=== PATIENT | male | born 1950 | race Caucasian/White ===

== ENCOUNTER 2016-10-30 21:09 | Emergency (ER) | payer OTHER, MEDICARE ==
[~2016-10-30 21:09] MED LIST: Iopamidol 370 76% 100 ML VIAL ONE
[2016-10-30] MEDS ORDERED: Adacel (T-DAP) 0.5 ML VIAL ONE (21:38)
[2016-10-30 21:42] LABS: #Basophils 0.1 thou/uL (0.0-0.2); #Eosinphils 0.2 thou/uL (0.0-0.7); #Lymphocytes 3.5 thou/uL (1.20-3.40); #Neutrophils 5.8 thou/uL (1.40-6.50); %Basophils 0.9 % (0.0-1.0); %Eosinophils 2.2 % (0.0-10.0); %Lymphocytes 33.1 % (21.0-51.0); %Monocytes 9.1 % (0.0-10.0); Hematocrit 47.6 % (42.0-52.0); Mean Platelet Volume 10.1 fL (7.4-10.4); Red Blood Cell (RBC) Count 4.84 mill/uL (4.70-6.10); White Blood Cell (WBC) Count 10.5 thou/uL (4.8-10.8)
[2016-10-30 21:51] LABS: ALT (SGPT) 95 U/L (0-55); AST (SGOT) 102 U/L (5-34); Alkaline Phosphatase 66 U/L (40-150); Anion Gap 18 mmol/L (10-20); BUN (Urea Nitrogen) 11 mg/dL (8.4-25.7); Bilirubin, Total 0.6 mg/dL (0.2-1.2); Calc. Creatinine Clearance 0 mL/min (70-130); Calcium 9.2 mg/dL (7.8-10.44); Carbon Dioxide 22 mmol/L (23-31); Chloride 98 mmol/L (98-107); Estimated GFR-MDRD 60; Protein, Total 6.8 g/dL (5.8-8.1)
[2016-10-30 21:52] LABS: Troponin I 0.021 ng/mL (< 0.028)
[2016-10-30] MEDS ORDERED: Sodium Chloride 0.9% 1,000 ML ONE (21:59)
--- NOTE | 2016-10-30 22:20 | CT ---
HEAD CT WITHOUT CONTRAST 10/30/2016 HISTORY: Trauma. COMPARISON: None. TECHNIQUE: Serial axial CT imaging at 5 mm intervals, from the vertex through the skull base, witho ut contrast. FINDINGS: There is polypoid mucosal thickening of the frontal sinus and anterior ethmoid air cells on the right. There is no displaced calvarial fracture. There is atherosclerotic calcification of the cavernous carotid arteries. No intracranial hemorrhage, midline shift, or mass effect. Mild diffuse cerebral volume loss. IMPRESSION No intracranial hemorrhage or displaced calvarial fracture. POS: [facility]
--- NOTE | 2016-10-30 22:25 | CT ---
CERVICAL SPINE CT WITHOUT CONTRAST 10/30/2016 HISTORY: Fall. Pain. COMPARISON: None. TECHNIQUE: Serial axial CT imaging at 2.5 mm intervals, from the skull base through the lung apices , without contrast. Coronal and sagittal reformatted imaging obtained. FINDINGS: Incompletely imaged linear density noted in the right upper lobe, which may signify scar , volume loss, or infiltrate. The imaged paranasal sinuses and mastoid air cells appear unremarkable. The C1 ring is intact. The re is moderate-severe degenerative change at the atlantoaxial interspace. The craniocervical juncti on and the cervicothoracic junction are unremarkable. The occipital condyles, the dens, and the C1- 2 articulation demonstrate no acute findings. There is bilateral upper cervical spine facet hypertrophy, right greater than left, most prominent a t C2-C3, C3-C4, and C4-C5. No prevertebral soft tissue swelling. No acute fracture. IMPRESSION 1. Incidental findings as above. 2. No acute osseous abnormality seen. POS: [facility]
--- NOTE | 2016-10-30 22:32 | RAD ---
SEMI-UPRIGHT PORTABLE FRONTAL CHEST RADIOGRAPH 10/30/2016 HISTORY: Syncope. Fall. COMPARISON: 03/18/2011 FINDINGS: There is hazy reticulonodular density noted in the right lung base, at the lateral aspec t of the mid right lung zone, new when compared to the 2010 exam. A transvenous pacing device is in place. No pneumothorax or large volume pleural effusion. IMPRESSION Nonspecific hazy, reticulonodular density noted in the right lung, as above. Findings may be relate d to infectious pneumonitis. Follow-up PA and lateral imaging of the chest, following treatment, ad vised, to document resolution. If findings do not resolve in a proper time frame, a CT examination of the chest would then be recommended. CODE T POS: [facility]
--- NOTE | 2016-10-30 23:08 | RAD ---
TWO VIEWS OF THE RIGHT KNEE 10/30/2016 COMPARISON: None. HISTORY: Trauma, pain. FINDINGS: There is moderate lateral compartment narrowing. There is enthesophyte formation at the insertion o f the quadriceps tendon. No significant knee joint effusion. No displaced fracture or evidence of dislocation seen. IMPRESSION: No displaced fracture or dislocation noted. POS: [facility]
[2016-10-30] MEDS ORDERED: Fentanyl 100 MCG/2 ML VIAL ONE (23:17)
--- NOTE | 2016-10-30 23:17 | CT ---
CT ANGIOGRAM CHEST 10/30/2016 COMPARISON: None. HISTORY: Fall, pain. TECHNIQUE: Serial axial CT imaging at 2.5-mm intervals from the thoracic inlet through the upper abdomen with I V contrast using a CT angiogram protocol. Coronal and sagittal 3D reformatted imaging obtained. FINDINGS: The imaged upper abdomen is grossly unremarkable. A multi-lead transvenous pacing device is present . No hilar, mediastinal, or axillary lymphadenopathy noted. Extensive calcified pleural plaque formation is noted, right greater than left. Incidental note is made of an azygous lobe and fissure. No significant pleural, pericardial, or mediastinal fluid is seen. No evidence for pulmonary arterial embolism seen. There is mild hazy posterior ground glass opacity involving the inferior aspect of the right lower l obe, which could be related to inflammatory/infectious pneumonitis. No focal consolidation is seen. There is significant upper lobe emphysematous change. There is no pneumothorax seen on either side. There is a minimally displaced posterolateral right-sided 7th, 8th, and 9th rib fractures. There are a few nodular densities in the right upper lobe, best seen on axial image 19 measuring up to 5 mm. IMPRESSION: 1. Mildly displaced right-sided posterolateral 7th, 8th, and 9th rib fractures. Associated adjacent right lower ground glass opacity suggests volume loss or contusion. 2. No evidence for pulmonary embolism. 3. Emphysematous change. 4. Calcified pleural plaque formation suggests prior asbestos exposure. 5. Subcentimeter nodular densities in right upper lobe for which follow-up CT examination in 3-6 mon ths advised. POS: [facility]
[2016-10-31 00:06] LABS: Bilirubin Negative (Negative); Blood, Urine Negative (Negative); Glucose, Urine (Dipstick) Negative (Negative); Ketone, Urine Negative (Negative); Nitrite Negative (Negative); Protein, Urine (Dipstick) 30 mg/dL (Neg-Trace)
[2016-10-31 00:09] LABS: RBC/HPF None Seen HPF (0-3); WBC/HPF None Seen HPF (0-3)
[2016-10-31 00:10] LABS: Bacteria/HPF None Seen HPF (None Seen); Squamous Epithelial None Seen HPF (0-3)
[2016-10-31 00:15] LABS: Methadone Not Detected (NotDetected); Methamphetamine Not Detected (NotDetected)
--- NOTE | 2016-10-31 00:35 | ERRECORD ---
[facility] EMERGENCY RECORD ADMIN (21:11 EPIE) MERGE: Ambulance Sat Oct 30, 2016 20:57. HPI SYNCOPE (21:37 AGRE) CHIEF COMPLAINT: Patient presents for evaluation of syncope. HISTORIAN: History provided by patient's partner, Additional history obtained from EMS, PATIENT WALKED OUTDOORS AT A DEMOCRAT AND THEN STARTED LOOKING FUNNY AND PASSED OUT HITTING HIS HEAD ON THE GROUND. HAD LOC FOR ABOUT 5 MINUTES. EMS REPORTS HE WAS CONFUSED WITH LOW BLOOD PRESSURE UPON THEIR ARRIVAL. PATIENT DOES NOT RECALL WHAT HAPPENED. WAS FEELING WELL PRIOR. DENIES CHEST PAIN, SOB, ABDOMINAL PAIN AT THIS TIME. ONLY SYMPTOMS NOW IS HEADACHE. HX OF RECENT FX OF RIGHT LEG AND WAS ON CRUTCHES FOR THAT UNTIL 3 WEEKS AGO. HIS ASSOCIATE REPORTS THAT HE PASSED OUT ONCE A FEW YEARS AGO FROM DEHYDRATION. LOCATION: No localizing symptoms. QUALITY: Symptom quality described as blackout. SEVERITY: Maximum severity of symptoms severe, Currently symptoms are severe. TIME COURSE: Sudden onset of symptoms, Symptoms are improving. ASSOCIATED WITH: No associated abdominal pain, No associated back pain, No associated change in speech, No associated chest pain, No associated diarrhea, No associated diaphoresis, No associated focal deficit, No associated GI Bleed, No associated pleuritic chest pain, No associated recent surgery, Associated with alevism of normal mental status, delayed, No associated shortness of breath, No associated seizures, No associated tachycardia, No associated vomiting, No associated weakness, Denies any other complaints. EXACERBATED BY: Patient's condition exacerbated by nothing. RELIEVED BY: Patient's condition relieved by nothing. WELLS CRITERIA FOR PE: No clinical signs and symptoms of a DVT (0), Patient does not have, or is likely to not have, a primary diagnosis of PE (0), Patient's heart rate is less than 100 (0), Patient has had affected area immobilized for 3 days or longer, or has had surgery within the past 4 weeks (1.5), Patient has not had an objectively diagnosed PE or DVT previously (0), Patient does not have hemoptysis (0), Patient has not had treatment for malignancy within the last 6 months, nor palliative (0). ROS (21:41 AGRE) CONSTITUTIONAL: Historian denies chills, denies fever, denies weakness. EYES: Historian denies eye redness, denies vision changes. ENT: Historian denies sore throat, denies stridor. CARDIOVASCULAR: Historian denies chest pain, denies diaphoresis. RESPIRATORY: Historian denies cough, denies shortness of breath. GI: Historian denies abdominal pain, denies nausea, denies vomiting. MUSCULOSKELETAL: Historian denies back pain, denies neck pain. SKIN: Historian denies skin changes, reports skin &a-1R&a+25V*p+0X*u3064L*c202B*c15G*c2P*p-0X&a-25V&a+1R Name: Rommel Huerta : 1950 M66 MedRec: [id number] AcctNum: [id number] Prepared: Anisha Oct 31, 2016 01:26 by Interface Page 1 of 5 pMD [facility] EMERGENCY RECORD lesions. SCALP ABRASIONS. NEUROLOGIC: Historian reports confusion, denies dizziness, denies focal weakness, reports headache, denies lethargy, reports mental status changes, denies paralysis, denies paresthesias, denies seizures. HEMO/LYMPHATIC: Normal hematologic/lymphatic system review, Historian denies petechiae. PSYCHIATRIC: Negative psychiatric review of systems, Historian denies anxiety. PAST MEDICAL HISTORY (22:19 EPIE) MEDICAL HISTORY: Notes: Lung CA, Past medical history includes cardiac history, congestive heart failure, Treated with a pacemaker, Past medical history includes ears, eye, nose and throat history, Right Eye Trauma with resulted Blindess, Past medical history includes history of hypertension, pulmonary disease. chronic obstructive pulmonary disease. MALE SURGICAL HISTORY: Left Lower Lobectomy. SOCIAL HISTORY: Patient drinks socially, Patient denies drug use, Patient currently uses tobacco. KNOWN ALLERGIES Propulsid CURRENT MEDICATIONS No recorded medications VITAL SIGNS VITAL SIGNS: BP: 104/76, Pulse: 80, Resp: 20, Temp: 97.7 (Oral), O2 sat: 88 on Room Air, Time: 10/30/2016 21:20. (21:20 EPIE) BP: 118/85, Pulse: 82, Resp: 18 (Non-Labored), O2 sat: 95 on 4L Oxygen, Time: 10/30/2016 23:10. (23:10 EPIE) PHYSICAL EXAM (21:41 AGRE) CONSTITUTIONAL: Vital signs reviewed, Patient afebrile, Respiratory rate normal, Patient appears non toxic, Patient appears pain free, Patient alert and oriented to person, place and time, NURSES NOTES REVIEWED. HEAD: Head exam included findings of, no Mills's sign, No raccoon eyes, Contusion to right frontal, Abrasion to right frontal, normocephalic. EYES: Eye exam included findings of eyelids normal to inspection, Pupils not equally round and reactive to light, UNEQUAL, IRREGULAR PUPIL RIGHT EYE SECONDARY TO OLD TRAUMATIC INJURY, Extraocular muscles intact, Conjunctiva normal, Sclera normal, no periorbital ecchymosis, no periorbital edema, no periorbital erythema. ENT: Ear exam normal, tympanic membranes normal, Nose exam normal, no bleeding from nares, Pharynx exam normal, Uvula exam &a-1R&a+25V*p+0X*h1671P*c202B*c15G*c2P*p-0X&a-25V&a+1R Name: Rommel Huerta : 1950 M66 MedRec: [id number] AcctNum: [id number] Prepared: Anisha Oct 31, 2016 01:26 by Interface Page 2 of 5 pMD [facility] EMERGENCY RECORD normal, Tonsil exam normal, Mouth exam normal. NECK: Neck exam normal, Neck exam included findings of normal range of motion, no meningeal signs, no cervical adenopathy, no tenderness, no abrasions, no contusions, no ecchymosis, CERVICAL COLLAR PLACED IN ED. RESPIRATORY CHEST: no tenderness, no crepitus, Respiratory and chest exam normal, Respiratory exam included findings of no respiratory distress, Breath sounds clear, No wheezing, No rales, No rhonchi, Breath sounds not diminished. TENDERNESS TO PALPATION OVER THE RIGHT LATERAL CHEST WALL WITHOUT SWELLING OR BRUISING. CARDIOVASCULAR: Cardiovascular exam included findings of heart rate regular rate and rhythm, Heart sounds normal, normal S1, normal S2, no murmurs, no rub, no gallop. ABDOMEN MALE: NO SIGNS OF TRAUMA, Abdominal exam normal, Abdominal exam included findings of abdomen nontender, Bowel sounds normal, Liver normal, Spleen normal, no distension, no mass. BACK: Back exam normal, Back exam included findings of normal inspection, range of motion normal, no tenderness, no pain with straight leg raise, NO SIGNS OF TRAUMA. UPPER EXTREMITY: Upper extremity exam included findings of inspection abnormal, abrasions present, laceration(s) present, SUPERFICIAL LACERATIONS AND ABRASIONS OVER THE DORSUM OF THE RIGHT HAND. NO PALPABLE BONY TENDERNESS OR DEFORMITY. F.R.O.M. OF THE HAND. NO NEUROMOTOR OR TENDON DEFICITS, Range of motion normal, Motor strength normal, Radial pulse normal, no edema. LOWER EXTREMITY: Lower extremity exam included findings of inspection normal, Range of motion normal, Motor strength normal, Vilma's negative, Edema present, to the right lower extremity, pitting, +2, PATIENT SAYS THE LEG HAS BEEN SWOLLEN SINCE HIS RECENT FRACTURE, no calf tenderness, no palpable cords, NO SIGNS OF TRAUMA. NEURO: Neuro exam findings include patient oriented to person, place and time, Speech normal, [place] coma scale 15, Memory normal, Cranial nerves intact, no focal motor deficits, no focal sensory deficits, no cerebellar deficits, no nystagmus. SKIN: Skin exam normal, Skin exam included findings of skin warm, dry, and normal in color. LYMPHATIC: Lymphatic exam normal, Lymphatic exam included findings of cervical nodes normal. PSYCHIATRIC: Psychiatric exam normal, Normal affect. EKG INTERPRETATION (21:35 AGRE) 12 LEAD EKG INTERPRETATION: 12 lead EKG interpreted by Emergency Department Physician at time of study, 12 lead EKG shows, paced rhythm, with no ectopics. 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 Incidental findings as above. 2. No acute osseous abnormality seen. (22:56 AGRE) Preliminary review of CT scans by, Radiologist, No intracranial hemorrhage, midline shift, or mass effect. Mild diffuse cerebral volume loss. IMPRESSION No intracranial hemorrhage or displaced calvarial fracture. (22:57 AGRE) Preliminary review of x-rays by, Radiologist, IMPRESSION Nonspecific hazy, reticulonodular density noted in the right lung, as above. Findings may be related to infectious pneumonitis. Follow-up PA and lateral imaging of the chest, following treatment, advised, to document resolution. If findings do not resolve in a proper time frame, a CT examination of the chest would then be recommended. CODE Lauren (22:58 AGRE) MEDICATION ADMINISTRATION SUMMARY Drug Name: fentaNYL (PF) injection, Dose Ordered: 50 mcg, Route: IV Push, Status: Given, Time: 23:22 10/30/2016, Drug Name: *sodium chloride 0.9 % intravenous, Dose Ordered: 100 mL/hr, Route: IV Fluid Infusion, Status: Given, Time: 22:04 10/30/2016, Drug Name: Adacel(Tdap Adolesn/Adult)(PF), Dose Ordered: 0.5 mg, Route: Intramuscular, Status: Given, Time: 21:46 10/30/2016, Drug Name: sodium chloride 0.9 % intravenous, Dose Ordered: 1000 mL, Route: IV Fluid Infusion, Status: Given, Time: 21:23 10/30/2016, *Additional information available in notes, Detailed record available in Medication Service section. DOCTOR NOTES TEXT: PATIENT HAS REMAINED ALERT AND ORIENTED IN THE ED WITH STABLE VS. OXYGEN SAT 93 - 94% ON ROOM AIR. NO ARRYTHMIA'S NOTED ON MONITOR. DISCUSSED WITH HIM AND SONS THE FINDINGS ON EXAM, RESULTS OF HIS ED TEST, RECOMMENDATIONS FOR ADMISSION FOR FURTHER EVALUATION AND MANAGEMENT TO HOSPITAL WITH HIGHER LEVEL OF CARE. THEY EXPRESSED UNDERSTANDING AND AGREEMENT. (23:09 AGRE) VS HAVE REMAINED STABLE AND HE HAS REMAINED ALERT AND ORIENTED WITHOUT ANY NEURO CHANGES. CASE DISCUSSED WITH DR GLORIA WHO WILL ACCEPT THE PATIENT AT [facility]. (23:41 AGRE) PATIENT STATUS: Patient has improved since arrival to emergency department. (23:09 AGRE) Patient has improved since arrival to emergency department. (23:41 AGRE) PATIENT PLAN: The patient requires a transfer and will be transferred. (23:09 AGRE) The patient requires a transfer and will be transferred. (23:41 AGRE) DATA REVIEWED: Lab data reviewed, Xray data reviewed, Reviewed EKG, Discussed with family. (23:09 AGRE) &a-1R&a+25V*p+0X*u8965V*c202B*c15G*c2P*p-0X&a-25V&a+1R Name: Rommel Huerta : 1950 M66 MedRec: [id number] AcctNum: [id number] Prepared: Anisha Oct 31, 2016 01:26 by Interface Page 4 of 5 pMD [facility] EMERGENCY RECORD Lab data reviewed, Xray data reviewed, Reviewed EKG, Discussed with family, Discussed with consultants. (23:41 AGRE) PROBLEM LIST No recorded problems DIAGNOSIS (23:21 AGRE) FINAL: PRIMARY: PULMONARY CONTUSION WITH HYPOXIA, ADDITIONAL: hand injury, right, head injury, multiple rib fractures, right, scalp abrasion, Syncope. PRESCRIPTION No recorded prescriptions DISPOSITION PATIENT: Disposition Type: Transfer, Disposition Transport: Ambulance. (23:06 AGRE) Disposition: [facility], Patient left the department. (Anisha Oct 31, 2016 01:21 EPIE) Mclaughlin: AGRE=MD Marshall, Rakan EPIE=MAYELIN Scott, Radha &a-1R&a+25V*p+0X*t6024O*c202B*c15G*c2P*p-0X&a-25V&a+1R Name: Rommel Huerta : 1950 M66 MedRec: [id number] AcctNum: [id number] Prepared: Anisha Oct 31, 2016 01:26 by Interface Page 5 of 5 pMD [facility]
--- NOTE | 2016-10-31 00:38 | PICIS ---
[facility] EMERGENCY RECORD ADMIN MERGE: Ambulance Sat Oct 30, 2016 20:57. (21:11 EPIE) TRIAGE (21:11 EPIE) TRIAGE NOTES: reports syncope, unconscious for 5 minutes. AMS, low BP,. (21:11 EPIE) PATIENT: NAME: Rommel Huerta, AGE: 66, GENDER: male, : Tue1950, TIME OF GREET: Sat Oct 30, 2016 21:10, PREFERRED LANGUAGE: Malaysian, ETHNICITY: Not or , ECODE BILLING MAP: [facility] ER, SSN: [id number], Zip Code: [address], KG WEIGHT: 102.97, PHONE: , , , PERSON ID: [id number]. (21:11 EPIE) COMPLAINT: SYNCOPE. (21:11 EPIE) ADMISSION: URGENCY: 2 Emergent, ADMISSION SOURCE: Home, TRANSPORT: CAR, BED: TRIAGE. (21:11 EPIE) TRIAGE SCREENING: Patient denies suicidal ideation, Patient denies presence of domestic violence. (22:19 EPIE) TREATMENTS IN PROGRESS: Treatments given Prehospital: 1LNS. (22:19 EPIE) PROVIDERS: TRIAGE NURSE: Radha Scott RN. (21:11 EPIE) KNOWN ALLERGIES Propulsid CURRENT MEDICATIONS No recorded medications VITAL SIGNS VITAL SIGNS: BP: 104/76, Pulse: 80, Resp: 20, Temp: 97.7 (Oral), O2 sat: 88 on Room Air, Time: 10/30/2016 21:20. (21:20 EPIE) BP: 118/85, Pulse: 82, Resp: 18 (Non-Labored), O2 sat: 95 on 4L Oxygen, Time: 10/30/2016 23:10. (23:10 EPIE) NURSING PROCEDURE: BEDSIDE TESTING (21:32 LEEW) GLUCOSE: Glucose testing indicated for Diaphorectic, Venous blood sample, Result (mg/dl) 85, Machine number er. NURSING PROCEDURE: WORKFORCE MANAGEMENT MANAGER (21:11 LEEW) WORKFORCE MANAGEMENT MANAGER: Cardiac monitoring indicated for syncope episode, Patient placed on cardiac exercise physiologist, Heart rate: 80, showing paced rhythm, with no ST segment changes, Patient placed on non-invasive blood pressure monitor, with disposable blood pressure cuff applied, Patient placed on continuous pulse oximetry, Adult/pediatric oxisensor applied, Oxygen saturation 91%. FOLLOW-UP: After procedure, alarms set and on, After procedure, patient tolerating monitoring. NURSING PROCEDURE: EKG CHART (21:15 KASA) PATIENT IDENTIFIER: Patient actively involved in identification &a-1R&a+25V*p+0X*x7568B*c202B*c15G*c2P*p-0X&a-25V&a+1R Name: Rommel Huerta : 1950 M66 MedRec: [id number] AcctNum: [id number] Prepared: Anisha Oct 31, 2016 01:27 by Interface Page 1 of 17 D [facility] EMERGENCY RECORD process, Patient's identity verified by patient stating name, Patient's identity verified by patient stating date. EKG: EKG indicated for LOC, 12 lead EKG performed on the left chest, done by MAYELIN PHAM, first EKG. FOLLOW-UP: After procedure, EKG for interpretation given to Dr. CHAKRABORTY. SAFETY: Side rails up, Cart/Stretcher in lowest position, Family at bedside, Call light within reach, Hospital ID band on. NURSING PROCEDURE: IV (21:52 [facility]) IV SITE 1: IV established, to the right antecubital, using an 18 gauge catheter, Labs drawn at time of placement, labeled in the presence of the patient and sent to lab, Notes: 18g RAC, 16G LAC started in the Field. Lab drawn in the field. NURSING PROCEDURE: TRANSPORT TO TESTS (22:29 [facility]) PATIENT IDENTIFIER: Patient actively involved in identification process. TRANSPORT TO TESTS: Transport indicated to facilitate diagnosis, Patient transported to CT scan, via cart, Accompanied by x-ray metallographic technician, Patient arrived in location at 2230, Patient departed location at 2250. FOLLOW-UP: After procedure, patient returned to emergency department. SAFETY: Side rails up, Cart/Stretcher in lowest position, Family at bedside, Call light within reach, Hospital ID band on. NURSING PROCEDURE: URINE COLLECTION (23:58 LEE) PATIENT IDENTIFIER: Patient actively involved in identification process, Patient's identity verified by patient stating name, Patient's identity verified by hospital ID bracelet, Patient's identity verified by family member. URINE COLLECTION MALE: Urine collection indicated for Drug screen, Urine collected by straight cath, using a 16 fr catheter, in two attempts, urine yellow in color, and clear. FOLLOW UP: Total output (ml) 300. ORDER DETAILS Order Name: Alcohol, Status: Active, Time: 21:19 10/30/2016, User: JESSIKA, - Ordered for: MD Chakraborty Andrea, - Entered by: MD Chakraborty Andrea - Sat Oct 30, 2016 21:19, - Quantity: 1, Order Name: WORKFORCE MANAGEMENT MANAGER ED, Status: Done, Time: 21:20 10/30/2016, User: ANITA, - Ordered for: MD Chakraborty Andrea, - Entered by: MD Chakraborty Andrea - Sat Oct 30, 2016 21:19, - Quantity: 1, Order Name: Cardiac Profile w/CKMB & Troponin - I, Status: Active, &a-1R&a+25V*p+0X*a2142H*c202B*c15G*c2P*p-0X&a-25V&a+1R Name: Rommel Huerta : 1950 M66 MedRec: [id number] AcctNum: [id number] Prepared: Anisha Oct 31, 2016 01:27 by Interface Page 2 of 17 D [facility] RECORD Time: 21:19 10/30/2016, User: JESSIKA, - Ordered for: MD Chakraborty Andrea, - Entered by: MD Chakraborty Andrea - Sat Oct 30, 2016 21:19, - Quantity: 1, Order Name: CBC with Differential, Status: Active, Time: 21:19 10/30/2016, User: JESSIKA, - Ordered for: MD Chakraborty Andrea, - Entered by: MD Chakraborty Andrea - Sat Oct 30, 2016 21:19, - Quantity: 1, Order Name: Comprehensive Metabolic Panel, Status: Active, Time: 21:19 10/30/2016, User: JESSIKA, - Ordered for: MD Chakraborty Andrea, - Entered by: MD Chakraborty Andrea - Sat Oct 30, 2016 21:19, - Quantity: 1, Order Name: CT Brain WO Con, Status: Active, Time: 21:19 10/30/2016, User: AGRE, - Ordered for: MD Chakraborty Andrea, - Entered by: MD Chakraborty Andrea - Sat Oct 30, 2016 21:19, - Quantity: 1, Order Name: CT Cervical Spine WO Con, Status: Active, Time: 21:19 10/30/2016, User: JESSIKA, - Ordered for: MD Chakraborty Andrea, - Entered by: MD Chakraborty Andrea - Sat Oct 30, 2016 21:19, - Quantity: 1, Order Name: CTA Angio Chest W WO Con(PE Protocol), Status: Active, Time: 21:50 10/30/2016, User: JESSIKA, - Ordered for: MD Chakraborty Andrea, - Entered by: MD Chakraborty Andrea - Sat Oct 30, 2016 21:50, - Quantity: 1, Order Name: Culture, Blood, Status: Active, Time: 23:17 10/30/2016, User: JESSIKA, - Ordered for: MD Chakraborty Andrea, - Entered by: MD Chakraborty Andrea - Sat Oct 30, 2016 23:17, - Quantity: 1, Order Name: D-Dimer (Quantitative), Status: Active, Time: 21:19 10/30/2016, User: JESSIKA, - Ordered for: MD Chakraborty Andrea, - Entered by: MD Chakraborty Andrea - Sat Oct 30, 2016 21:19, - Quantity: 1, Order Name: Drug Screen, Urine, Status: Active, Time: 21:20 10/30/2016, User: JESSIKA, - Ordered for: MD Chakraborty Andrea, - Entered by: MD Chakraborty Andrea - Sat Oct 30, 2016 21:20, - Quantity: 1, Order Name: EKG 12 Lead in Emergency Room, Status: Active, Time: 21:19 10/30/2016, User: JESSIKA, - Ordered for: MD Chakraborty Andrea, - Entered by: MD Chakraborty Andrea - Sat Oct 30, 2016 21:19, - Quantity: 1, Order Name: ERRT Oxygen Usage ER, Status: Active, Time: 22:31 &a-1R&a+25V*p+0X*x4562Q*c202B*c15G*c2P*p-0X&a-25V&a+1R Name: Rommel Huerta : 1950 M66 MedRec: [id number] AcctNum: [id number] Prepared: Anisha Oct 31, 2016 01:27 by Interface Page 3 of 17 pMD [facility] 10/30/2016, User: ANITA, - Ordered for: MD Chakraborty Andrea, - Entered by: MAYELIN Scott Emily - Jarred Oct 30, 2016 22:31, - Quantity: 1, Order Name: ORTHOSTATIC VITAL SIGNS, Status: Active, Time: 21:19 10/30/2016, User: JESSIKA, - Ordered for: MD Chakraborty Andrea, - Entered by: MD Chakraborty Andrea - Jarred Oct 30, 2016 21:19, - Quantity: 1, Order Name: SALINE LOCK, Status: Done, Time: 21:20 10/30/2016, User: ANITA, - Ordered for: MD Chakraborty Andrea, - Entered by: MD Chakraborty Andrea - Jarred Oct 30, 2016 21:19, - Quantity: 1, Order Name: Urinalysis with Microscopic, Status: Active, Time: 21:20 10/30/2016, User: JESSIKA, - Ordered for: MD Chakraborty Andrea, - Entered by: MD Chakraborty Andrea - Sat Oct 30, 2016 21:20, - Quantity: 1, Order Name: XR Chest 1 View Portable, Status: Active, Time: 21:20 10/30/2016, User: JESSIKA, - Ordered for: MD Chakraborty Andrea, - Entered by: MD Chakraborty Andrea - Jarred Oct 30, 2016 21:20, - Quantity: 1, Order Name: XR Hand Rt 3 View STANDARD, Status: Canceled, Time: 22:48 10/30/2016, User: System, - Ordered for: MD Chakraborty Andrea, - Entered by: MD Chakraborty Andrea - Sat Oct 30, 2016 21:47, - Quantity: 1, Order Name: XR Ribs Rt>= 2 View W/PA CXR, Status: Canceled, Time: 22:48 10/30/2016, User: System, - Ordered for: MD Chakraborty Andrea, - Entered by: MD Chakraborty Andrea - Jarred Oct 30, 2016 21:49, - Quantity: 1, Order Name: XR Tib Fib Rt Leg 2 View, Status: Canceled, Time: 22:49 10/30/2016, User: System, - Ordered for: MD Marshall, Rakan, - Entered by: MD Chakraborty Andrea - Sat Oct 30, 2016 21:49, - Quantity: 1. MEDICATION ADMINISTRATION SUMMARY Drug Name: fentaNYL (PF) injection, Dose Ordered: 50 mcg, Route: IV Push, Status: Given, Time: 23:22 10/30/2016, Drug Name: *sodium chloride 0.9 % intravenous, Dose Ordered: 100 mL/hr, Route: IV Fluid Infusion, Status: Given, Time: 22:04 10/30/2016, Drug Name: Adacel(Tdap Adolesn/Adult)(PF), Dose Ordered: 0.5 mg, Route: Intramuscular, Status: Given, Time: 21:46 10/30/2016, Drug Name: sodium chloride 0.9 % intravenous, Dose Ordered: 1000 mL, &a-1R&a+25V*p+0X*t9769K*c202B*c15G*c2P*p-0X&a-25V&a+1R Name: Rommel Huerta : 1950 M66 MedRec: [id number] AcctNum: [id number] Prepared: Anisha Oct 31, 2016 01:27 by Interface Page 4 of 17 D [facility] EMERGENCY RECORD Route: IV Fluid Infusion, Status: Given, Time: 21:23 10/30/2016, *Additional information available in notes, Detailed record available in Medication Service section. MEDICATION SERVICE Adacel(Tdap Adolesn/Adult)(PF): Order: Adacel(Tdap Adolesn/Adult)(PF) (diphth,pertuss(acell),tet vac/preservative free) - Dose: 0.5 mg : Intramuscular Ordered by: Rakan Chakraborty MD Entered by: Rakan Chakraborty MD Sat Oct 30, 2016 21:21 , Acknowledged by: Radha Scott RN Sat Oct 30, 2016 21:23 Documented as given by: Radha Scott RN Sat Oct 30, 2016 21:46 Patient, Medication, Dose, Route and Time verified prior to administration. IM immunization, Amount given: 0.5ml, Medication administered to left deltoid, lot number: [id number], expiration: 09/23/18, Correct patient, time, route, dose and medication confirmed prior to administration, Patient advised of actions and side-effects prior to administration, Allergies confirmed and medications reviewed prior to administration. : Follow Up : Response assessment performed, No signs or symptoms of allergic reaction noted, Site inspection shows, No swelling at administration site, No drainage at administration site, No bleeding at site, No bruising noted at site, Dressing applied. (22:07 EPIE) fentaNYL (PF) injection: Order: fentaNYL (PF) injection (fentanyl citrate/preservative free) - Dose: 50 mcg : IV Push Ordered by: Rakan Chakraborty MD Entered by: Rakan Chakraborty MD Sat Oct 30, 2016 23:12 , Acknowledged by: Radha Scott RN Sat Oct 30, 2016 23:17 Documented as given by: Radha Scott RN Sat Oct 30, 2016 23:22 Patient, Medication, Dose, Route and Time verified prior to administration. Amount given: 50mcg, IV SITE #1 IVP, initial medication, Slowly, Catheter placement confirmed via flush prior to administration, IV site without signs or symptoms of infiltration during medication administration, No swelling during administration, No drainage during administration, IV flushed after administration, Correct patient, time, route, dose and medication confirmed prior to administration, Patient advised of actions and side-effects prior to administration, Allergies confirmed and medications reviewed prior to administration. sodium chloride 0.9 % intravenous: Order: sodium chloride 0.9 % intravenous (0.9 % sodium chloride) - Dose: 1000 mL : IV Fluid Infusion Ordered by: Rakan Chakraborty MD Entered by: Rakan Chakraborty MD Sat Oct 30, 2016 21:21 Documented as given by: Radha Scott RN Sat Oct 30, 2016 21:23 Patient, Medication, Dose, Route and Time verified prior to administration. Amount given: 1L, IV SITE #1 IV fluids established for hydration, IV &a-1R&a+25V*p+0X*c4568D*c202B*c15G*c2P*p-0X&a-25V&a+1R Name: Rommel Huerta : 1950 M66 MedRec: [id number] AcctNum: [id number] Prepared: Anisha Oct 31, 2016 01:27 by Interface Page 5 of 17 pMD [facility] RECORD SITE #1 into right antecubital, IV SITE #1 2nd bag hung, amount 1 Liter hung, IV SITE #1 bolus of 1000 ml established, via primary tubing, Catheter placement confirmed via flush prior to administration, IV site without signs or symptoms of infiltration during medication administration, No swelling during administration, No drainage during administration, IV flushed after administration, Correct patient, time, route, dose and medication confirmed prior to administration, Patient advised of actions and side-effects prior to administration, Allergies confirmed and medications reviewed prior to administration. : Follow Up : Response assessment performed, No signs or symptoms of allergic reaction noted, _IV SITE #1:_, IV fluid infusion discontinued, on Sat Oct 30, 2016 22:00, 40 minutes, ., Total amount infused: 1L, IV Line flushed after administration. (22:08 EPIE) sodium chloride 0.9 % intravenous: Order: sodium chloride 0.9 % intravenous (0.9 % sodium chloride) - Dose: 100 mL/hr : IV Fluid Infusion Notes: after bolus Ordered by: Rakan Chakraborty MD Entered by: Rakan Chakraborty MD Sat Oct 30, 2016 21:21 , Acknowledged by: Radha Scott RN Sat Oct 30, 2016 21:23 Documented as given by: Radha Scott RN Sat Oct 30, 2016 22:04 Patient, Medication, Dose, Route and Time verified prior to administration. Amount given: 100ml/hr, IV SITE #1 IV fluids established for hydration, IV SITE #1 into left antecubital, IV SITE #1 3rd bag hung, amount 1 Liter hung, IV SITE #1 Rate of infusion (non-bolus) Infusing at 100 ml/hr, via primary tubing, IV SITE #1 on IV pump, Catheter placement confirmed via flush prior to administration, IV site without signs or symptoms of infiltration during medication administration, No swelling during administration, No drainage during administration, IV flushed after administration, Correct patient, time, route, dose and medication confirmed prior to administration, Patient advised of actions and side-effects prior to administration, Allergies confirmed and medications reviewed prior to administration. HPI SYNCOPE (21:37 AGRE) CHIEF COMPLAINT: Patient presents for evaluation of syncope. HISTORIAN: History provided by patient's partner, Additional history obtained from EMS, PATIENT WALKED OUTDOORS AT A [employer]PUBL[employer] AND THEN STARTED LOOKING FUNNY AND PASSED OUT HITTING HIS HEAD ON THE GROUND. HAD LOC FOR ABOUT 5 MINUTES. EMS REPORTS HE WAS CONFUSED WITH LOW BLOOD PRESSURE UPON THEIR ARRIVAL. PATIENT DOES NOT RECALL WHAT HAPPENED. WAS FEELING WELL PRIOR. DENIES CHEST PAIN, SOB, ABDOMINAL PAIN AT THIS TIME. ONLY SYMPTOMS NOW IS HEADACHE. HX OF RECENT FX OF RIGHT LEG AND WAS ON CRUTCHES FOR THAT UNTIL 3 WEEKS AGO. HIS ASSOCIATE REPORTS THAT HE PASSED OUT ONCE A FEW YEARS AGO FROM DEHYDRATION. LOCATION: No localizing symptoms. QUALITY: Symptom quality &a-1R&a+25V*p+0X*q4827P*c202B*c15G*c2P*p-0X&a-25V&a+1R Name: Rommel Huerta : 1950 M66 MedRec: [id number] AcctNum: [id number] Prepared: Anisha Oct 31, 2016 01:27 by Interface Page 6 of 17 pMD [facility] RECORD described as blackout. SEVERITY: Maximum severity of symptoms severe, Currently symptoms are severe. TIME COURSE: Sudden onset of symptoms, Symptoms are improving. ASSOCIATED WITH: No associated abdominal pain, No associated back pain, No associated change in speech, No associated chest pain, No associated diarrhea, No associated diaphoresis, No associated focal deficit, No associated GI Bleed, No associated pleuritic chest pain, No associated recent surgery, Associated with gnosticism of normal mental status, delayed, No associated shortness of breath, No associated seizures, No associated tachycardia, No associated vomiting, No associated weakness, Denies any other complaints. EXACERBATED BY: Patient's condition exacerbated by nothing. RELIEVED BY: Patient's condition relieved by nothing. WELLS CRITERIA FOR PE: No clinical signs and symptoms of a DVT (0), Patient does not have, or is likely to not have, a primary diagnosis of PE (0), Patient's heart rate is less than 100 (0), Patient has had affected area immobilized for 3 days or longer, or has had surgery within the past 4 weeks (1.5), Patient has not had an objectively diagnosed PE or DVT previously (0), Patient does not have hemoptysis (0), Patient has not had treatment for malignancy within the last 6 months, nor palliative (0). ROS (21:41 AGRE) CONSTITUTIONAL: Historian denies chills, denies fever, denies weakness. EYES: Historian denies eye redness, denies vision changes. ENT: Historian denies sore throat, denies stridor. CARDIOVASCULAR: Historian denies chest pain, denies diaphoresis. RESPIRATORY: Historian denies cough, denies shortness of breath. GI: Historian denies abdominal pain, denies nausea, denies vomiting. MUSCULOSKELETAL: Historian denies back pain, denies neck pain. SKIN: Historian denies skin changes, reports skin lesions. SCALP ABRASIONS. NEUROLOGIC: Historian reports confusion, denies dizziness, denies focal weakness, reports headache, denies lethargy, reports mental status changes, denies paralysis, denies paresthesias, denies seizures. HEMO/LYMPHATIC: Normal hematologic/lymphatic system review, Historian denies petechiae. PSYCHIATRIC: Negative psychiatric review of systems, Historian denies anxiety. PAST MEDICAL HISTORY (22:19 EPIE) MEDICAL HISTORY: Notes: Lung CA, Past medical history includes cardiac history, congestive heart failure, Treated with a pacemaker, Past medical history includes ears, eye, nose and throat history, Right Eye Trauma with resulted Blindess, Past medical history &a-1R&a+25V*p+0X*l1529L*c202B*c15G*c2P*p-0X&a-25V&a+1R Name: Rommel Huerta : 1950 M66 MedRec: [id number] AcctNum: [id number] Prepared: Anisha Oct 31, 2016 01:27 by Interface Page 7 of 17 D [facility] EM[facility]GENC[facility] RECORD includes history of hypertension, pulmonary disease. chronic obstructive pulmonary disease. MALE SURGICAL HISTORY: Left Lower Lobectomy. SOCIAL HISTORY: Patient drinks socially, Patient denies drug use, Patient currently uses tobacco. PHYSICAL EXAM (21:41 AGRE) CONSTITUTIONAL: Vital signs reviewed, Patient afebrile, Respiratory rate normal, Patient appears non toxic, Patient appears pain free, Patient alert and oriented to person, place and time, NURSES NOTES REVIEWED. HEAD: Head exam included findings of, no Mills's sign, No raccoon eyes, Contusion to right frontal, Abrasion to right frontal, normocephalic. EYES: Eye exam included findings of eyelids normal to inspection, Pupils not equally round and reactive to light, UNEQUAL, IRREGULAR PUPIL RIGHT EYE SECONDARY TO OLD TRAUMATIC INJURY, Extraocular muscles intact, Conjunctiva normal, Sclera normal, no periorbital ecchymosis, no periorbital edema, no periorbital erythema. ENT: Ear exam normal, tympanic membranes normal, Nose exam normal, no bleeding from nares, Pharynx exam normal, Uvula exam normal, Tonsil exam normal, Mouth exam normal. NECK: Neck exam normal, Neck exam included findings of normal range of motion, no meningeal signs, no cervical adenopathy, no tenderness, no abrasions, no contusions, no ecchymosis, CERVICAL COLLAR PLACED IN ED. RESPIRATORY CHEST: no tenderness, no crepitus, Respiratory and chest exam normal, Respiratory exam included findings of no respiratory distress, Breath sounds clear, No wheezing, No rales, No rhonchi, Breath sounds not diminished. TENDERNESS TO PALPATION OVER THE RIGHT LATERAL CHEST WALL WITHOUT SWELLING OR BRUISING. CARDIOVASCULAR: Cardiovascular exam included findings of heart rate regular rate and rhythm, Heart sounds normal, normal S1, normal S2, no murmurs, no rub, no gallop. ABDOMEN MALE: NO SIGNS OF TRAUMA, Abdominal exam normal, Abdominal exam included findings of abdomen nontender, Bowel sounds normal, Liver normal, Spleen normal, no distension, no mass. BACK: Back exam normal, Back exam included findings of normal inspection, range of motion normal, no tenderness, no pain with straight leg raise, NO SIGNS OF TRAUMA. UPPER EXTREMITY: Upper extremity exam included findings of inspection abnormal, abrasions present, laceration(s) present, SUPERFICIAL LACERATIONS AND ABRASIONS OVER THE DORSUM OF THE RIGHT HAND. NO PALPABLE BONY TENDERNESS OR DEFORMITY. F.R.O.M. OF THE HAND. NO NEUROMOTOR OR TENDON DEFICITS, Range of motion normal, Motor strength normal, Radial pulse normal, no edema. LOWER EXTREMITY: Lower extremity exam included findings of &a-1R&a+25V*p+0X*q9266B*c202B*c15G*c2P*p-0X&a-25V&a+1R Name: Rommel Huerta : 1950 M66 MedRec: [id number] AcctNum: [id number] Prepared: Anisha Oct 31, 2016 01:27 by Interface Page 8 of 17 pMD [facility]GENCY RECORD inspection normal, Range of motion normal, Motor strength normal, Vilma's negative, Edema present, to the right lower extremity, pitting, +2, PATIENT SAYS THE LEG HAS BEEN SWOLLEN SINCE HIS RECENT FRACTURE, no calf tenderness, no palpable cords, NO SIGNS OF TRAUMA. NEURO: Neuro exam findings include patient oriented to person, place and time, Speech normal, Sivakumar coma scale 15, Memory normal, Cranial nerves intact, no focal motor deficits, no focal sensory deficits, no cerebellar deficits, no nystagmus. SKIN: Skin exam normal, Skin exam included findings of skin warm, dry, and normal in color. LYMPHATIC: Lymphatic exam normal, Lymphatic exam included findings of cervical nodes normal. PSYCHIATRIC: Psychiatric exam normal, Normal affect. LAB INTERPRETATION (21:53 AGRE) INTERPRETATION: CBC normal, Chemistry abnormal, Sodium decreased, Bicarbonate decreased, Liver functions abnormal, AST(SGOT) elevated, ALT(SGPT) elevated, Alcohol level, elevated, by blood level, D-dimer, elevated. EVENTS TRANSFER: Triage to Emergency Triage. ([facility] Oct 30, 2016 21:11 EPIE) Emergency Triage to Waiting (Hold Bed). (21:12 EPIE) Emergency Triage to Emergency Room *TR1. (21:12 EPIE) Removed from Emergency Emergency Room *TR1. ([facility] Oct 31, 2016 01:21 EPIE) RADIOLOGYINTERPRETATION MICROFILM PROCESSOR: Preliminary review of CT scans by, Radiologist, IMPRESSION 1. Incidental findings as above. 2. No acute osseous abnormality seen. (22:56 AGRE) Preliminary review of CT scans by, Radiologist, No intracranial hemorrhage, midline shift, or mass effect. Mild diffuse cerebral volume loss. IMPRESSION No intracranial hemorrhage or displaced calvarial fracture. (22:57 AGRE) Preliminary review of x-rays by, Radiologist, IMPRESSION Nonspecific hazy, reticulonodular density noted in the right lung, as above. Findings may be related to infectious pneumonitis. Follow-up PA and lateral imaging of the chest, following treatment, advised, to document resolution. If findings do not resolve in a proper time frame, a CT examination of the chest would then be recommended. CODE T. (22:58 AGRE) &a-1R&a+25V*p+0X*f0813T*c202B*c15G*c2P*p-0X&a-25V&a+1R Name: Rommel Huerta : 1950 M66 MedRec: [id number] AcctNum: [id number] Prepared: Anisha Oct 31, 2016 01:27 by Interface Page 9 of 17 pMD [facility] RECORD EKG INTERPRETATION (21:35 AGRE) 12 LEAD EKG INTERPRETATION: 12 lead EKG interpreted by Emergency Department Physician at time of study, 12 lead EKG shows, paced rhythm, with no ectopics. O2SAT INTERPRETATION (21:52 AGRE) O2SAT: Continuous pulse oximetry, Oxygen saturation 88%, on room air, Oxygen saturation interpretation: Hypoxic, Intervention required: Oxygen administration. DOCTOR NOTES TEXT: PATIENT HAS REMAINED ALERT AND ORIENTED IN THE ED WITH STABLE VS. OXYGEN SAT 93 - 94% ON ROOM AIR. NO ARRYTHMIA'S NOTED ON MONITOR. DISCUSSED WITH HIM AND SONS THE FINDINGS ON EXAM, RESULTS OF HIS ED TEST, RECOMMENDATIONS FOR ADMISSION FOR FURTHER EVALUATION AND MANAGEMENT TO HOSPITAL WITH HIGHER LEVEL OF CARE. THEY EXPRESSED UNDERSTANDING AND AGREEMENT. (23:09 AGRE) VS HAVE REMAINED STABLE AND HE HAS REMAINED ALERT AND ORIENTED WITHOUT ANY NEURO CHANGES. CASE DISCUSSED WITH DR GLORIA WHO WILL ACCEPT THE PATIENT AT [facility]. (23:41 AGRE) PATIENT STATUS: Patient has improved since arrival to emergency department. (23:09 AGRE) Patient has improved since arrival to emergency department. (23:41 AGRE) PATIENT PLAN: The patient requires a transfer and will be transferred. (23:09 AGRE) The patient requires a transfer and will be transferred. (23:41 AGRE) DATA REVIEWED: Lab data reviewed, Xray data reviewed, Reviewed EKG, Discussed with family. (23:09 AGRE) Lab data reviewed, Xray data reviewed, Reviewed EKG, Discussed with family, Discussed with consultants. (23:41 AGRE) PROBLEM LIST No recorded problems DIAGNOSIS (23:21 AGRE) FINAL: PRIMARY: PULMONARY CONTUSION WITH HYPOXIA, ADDITIONAL: hand injury, right, head injury, multiple rib fractures, right, scalp abrasion, Syncope. DISPOSITION PATIENT: Disposition Type: Transfer, Disposition Transport: Ambulance. (23:06 AGRE) Disposition: [facility], Patient left the department. (Anisha Oct 31, 2016 01:21 EPIE) PRESCRIPTION No recorded prescriptions IMAGING &a-1R&a+25V*p+0X*c1774G*c202B*c15G*c2P*p-0X&a-25V&a+1R Name: Rommel Huerta : 1950 M66 MedRec: [id number] AcctNum: [id number] Prepared: Anisha Oct 31, 2016 01:27 by Interface Page 10 of 17 pMD [facility] *EKG: Image captured from scanner. (21:35 LEEW) TETANUS CONSENT: Image captured from scanner. (22:15 EPIE) TRAUMA NOTES: Image captured from scanner. (23:56 LEEW) Page 2 added. Image captured from scanner. (23:56 LEEW) Page 3 added. Image captured from scanner. (23:57 LEEW) Page 4 added. Image captured from scanner. (23:57 LEEW) Page 5 added. Image captured from scanner. (23:57 LEEW) Page 6 added. Image captured from scanner. (23:57 LEEW) ADMIN DIGITAL SIGNATURE: MD Chakraborty Andrea. (Anisha Oct 31, 2016 00:30 AGRE) RESULTS RADIOLOGY: CTA Angio Chest W WO Con Observe DT: Sat Oct 30, 2016 21:52, CTATHX CT ANGIOGRAM CHEST 10/30/2016 COMPARISON: None. HISTORY: Fall, pain. TECHNIQUE: Serial axial CT imaging at 2.5-mm intervals from the thoracic inlet through the upper abdomen with I V contrast using a CT angiogram protocol. Coronal and sagittal 3D reformatted imaging obtained. FINDINGS: The imaged upper abdomen is grossly unremarkable. A multi-lead transvenous pacing device is present . No hilar, mediastinal, or axillary lymphadenopathy noted. Extensive calcified pleural plaque formation is noted, right greater than left. Incidental note is made of an azygous lobe and fissure. No significant pleural, pericardial, or mediastinal fluid is seen. No evidence for pulmonary arterial embolism seen. There is mild hazy posterior ground glass opacity involving the inferior aspect of the right lower l &a-1R&a+25V*p+0X*k9491C*c202B*c15G*c2P*p-0X&a-25V&a+1R Name: Rommel Huerta : 1950 M66 MedRec: [id number] AcctNum: [id number] Prepared: Anisha Oct 31, 2016 01:27 by Interface Page 11 of 17 pMD [facility] obe, which could be related to inflammatory/infectious pneumonitis. No focal consolidation is seen. There is significant upper lobe emphysematous change. There is no pneumothorax seen on either side. There is a minimally displaced posterolateral right-sided 7th, 8th, and 9th rib fractures. There are a few nodular densities in the right upper lobe, best seen on axial image 19 measuring up to 5 mm. IMPRESSION: 1. Mildly displaced right-sided posterolateral 7th, 8th, and 9th rib fractures. Associated adjacent right lower ground glass opacity suggests volume loss or contusion. 2. No evidence for pulmonary embolism. 3. Emphysematous change. 4. Calcified pleural plaque formation suggests prior asbestos exposure. 5. Subcentimeter nodular densities in right upper lobe for which follow-up CT examination in 3-6 mon ths advised. POS: [facility] . (23:43 AGRE) XR Knee Rt 2 View Observe DT: Sat Oct 30, 2016 21:51, KNEE2R TWO VIEWS OF THE RIGHT KNEE 10/30/2016 COMPARISON: None. HISTORY: Trauma, pain. FINDINGS: There is moderate lateral compartment narrowing. There is enthesophyte formation at the insertion o f the quadriceps tendon. No significant knee joint effusion. No displaced fracture or evidence of dislocation seen. IMPRESSION: &a-1R&a+25V*p+0X*b9651X*c202B*c15G*c2P*p-0X&a-25V&a+1R Name: Rommel Huerta : 1950 M66 MedRec: [id number] AcctNum: [id number] Prepared: Anisha Oct 31, 2016 01:27 by Interface Page 12 of 17 pMD [facility] No displaced fracture or dislocation noted. POS: [facility] . (23:43 AGRE) XR Chest 1 View Portable Observe DT: Sat Oct 30, 2016 21:22, CXRP SEMI-UPRIGHT PORTABLE FRONTAL CHEST RADIOGRAPH 10/30/2016 HISTORY: Syncope. Fall. COMPARISON: 03/18/2011 FINDINGS: There is hazy reticulonodular density noted in the right lung base, at the lateral aspec t of the mid right lung zone, new when compared to the 2011 exam. A transvenous pacing device is in place. No pneumothorax or large volume pleural effusion. IMPRESSION Nonspecific hazy, reticulonodular density noted in the right lung, as above. Findings may be relate d to infectious pneumonitis. Follow-up PA and lateral imaging of the chest, following treatment, ad vised, to document resolution. If findings do not resolve in a proper time frame, a CT examination of the chest would then be recommended. CODE T POS: [facility] . (23:43 AGRE) CT Cervical Spine WO Con Observe DT: Sat Oct 30, 2016 21:20, CSP CERVICAL SPINE CT WITHOUT CONTRAST 10/30/2016 HISTORY: Fall. Pain. COMPARISON: None. TECHNIQUE: Serial axial CT imaging at 2.5 mm intervals, from the skull base through the lung apices , without contrast. Coronal and sagittal reformatted imaging obtained. FINDINGS: Incompletely imaged linear density noted in the right upper lobe, which may signify scar &a-1R&a+25V*p+0X*[id number]*c202B*c15G*c2P*p-0X&a-25V&a+1R Name: Rommel Huerta : 1950 M66 MedRec: [id number] AcctNum: [id number] Prepared: Anisha Oct 31, 2016 01:27 by Interface Page 13 of 17 pMD [facility] , volume loss, or infiltrate. The imaged paranasal sinuses and mastoid air cells appear unremarkable. The C1 ring is intact. The re is moderate-severe degenerative change at the atlantoaxial interspace. The craniocervical juncti on and the cervicothoracic junction are unremarkable. The occipital condyles, the dens, and the C1- 2 articulation demonstrate no acute findings. There is bilateral upper cervical spine facet hypertrophy, right greater than left, most prominent a t C2-C3, C3-C4, and C4-C5. No prevertebral soft tissue swelling. No acute fracture. IMPRESSION 1. Incidental findings as above. 2. No acute osseous abnormality seen. POS: [facility] . (23:43 AGRE) CT Brain WO Con Observe DT: Sat Oct 30, 2016 21:20, BR HEAD CT WITHOUT CONTRAST 10/30/2016 HISTORY: Trauma. COMPARISON: None. TECHNIQUE: Serial axial CT imaging at 5 mm intervals, from the vertex through the skull base, witho ut contrast. FINDINGS: There is polypoid mucosal thickening of the frontal sinus and anterior ethmoid air cells on the right. There is no displaced calvarial fracture. There is atherosclerotic calcification of the cavernous carotid arteries. No intracranial hemorrhage, midline shift, or mass effect. Mild diffuse cerebral volume loss. IMPRESSION No intracranial hemorrhage or displaced calvarial fracture. POS: [facility] . (23:43 AGRE) &a-1R&a+25V*p+0X*i9050B*c202B*c15G*c2P*p-0X&a-25V&a+1R Name: Rommel Huerta : 1950 M66 MedRec: [id number] AcctNum: [id number] Prepared: Anisha Oct 31, 2016 01:27 by Interface Page 14 of 17 D [facility] LABORATORY: Accuchek Collection DT: [facility] Oct 30, 2016 22:08, Accuchek 85 mg/dL, Range (70-110). (23:43 AGRE) Cardiac Profile w/CKMB & TropI Collection DT: [facility] Oct 30, 2016 21:29, CKMB 1.8 ng/mL, Range (0-6.6), Troponin I 0.021 ng/mL, Range (< 0.028), Reference Range , 0.00 - 0.028 ng/mL Negative 0.029 - 0.29 ng/mL , Indeterminate Greater or Equal to 0.3 ng/mL Strongly suggests [place] , . (23:43 AGRE) Alcohol Collection DT: [facility] Oct 30, 2016 21:29, Alcohol 29 mg/dL, Range (Less than 10), The pharmacological response to blood alcohol levels may vary from, individual to individual. Negative: Less than 10, mg/dL Toxic: 50 - 100 mg/dL , Depression of FINISH REPAIRER: Greater than 100 mg/dL , Fatalities reported: Greater than 400 mg/dL . (23:43 AGRE) Comprehensive Metabolic Panel Collection DT: [facility] Oct 30, 2016 21:29, *Sodium 134 - L mmol/L, Range (136-145), Potassium 3.7 mmol/L, Range (3.5-5.1), Chloride 98 mmol/L, Range (98-107), *Carbon Dioxide 22 - L mmol/L, Range (23-31), Anion Gap 18 mmol/L, Range (10-20), BUN (Urea Nitrogen) 11 mg/dL, Range (8.4-25.7), Creatinine 1.20 mg/dL, Range (0.7-1.3), Estimated GFR-MDRD 60 , Reference Range for Estimated GFR: Greater than 90, mL/min/1.73 m2 NOTE: The MDRD equation has not been validated for use, with the elderly (over 70 years of age), women, patients with, serious comorbid condition or persons with extremes of body size, muscle, mass, or nutritional status. , Glucose 90 mg/dL, Range (80-115), Calcium 9.2 mg/dL, Range (7.8-10.44), Bilirubin, Total 0.6 mg/dL, Range (0.2-1.2), Protein, Total 6.8 g/dL, Range (5.8-8.1), NOTE: Plasma values are generally 0.3 to 0.5 g/dL higher than serum values, due to the presence of fibrinogen. , Albumin 3.8 g/dL, Range (3.4-4.8), Globulin 3.0 g/dL, Range (2.4-3.5), &a-1R&a+25V*p+0X*s8338O*c202B*c15G*c2P*p-0X&a-25V&a+1R Name: Rommel Huerta Yohana : 1950 M66 MedRec: [id number] AcctNum: [id number] Prepared: Anisha Oct 31, 2016 01:27 by Interface Page 15 of 17 pMD [facility] Alb/Glob Ratio 1.3 g/dL, Range (1.2-2.2), Alkaline Phosphatase 66 U/L, Range (40-150), *AST (SGOT) 102 - H U/L, Range (5-34), *ALT (SGPT) 95 - H U/L, Range (0-55). (23:43 AGRE) D-Dimer (Quantitative) Collection DT: [facility] Oct 30, 2016 21:29, *D-Dimer Test 3.90 - H *mcg/mL, Range (0.27-0.43), * Reference Range Units: mcg/mL of fibrinogen equivalent, units(FEU) Based upon a retrospective study of [facility] patients in February 2006, a result of Less than 0.44 mcg/mL FEU is, predictive of the absence of a DVT or PE. . (23:43 AGRE) CBC with Differential Collection DT: [facility] Oct 30, 2016 21:29, White Blood Cell (WBC) Count 10.5 thou/uL, Range (4.8-10.8), Red Blood Cell (RBC) Count 4.84 mill/uL, Range (4.70-6.10), Hemoglobin 16.1 g/dL, Range (14.0-18.0), Hematocrit 47.6 %, Range (42.0-52.0), *Mean Corpuscular Volume 98.4 - H fl, Range (80.0-94.0), *Mean Corpuscular Hemoglobin 33.3 - H pg, Range (27.0-31.0), Mean Corpuscular HGB CONC 33.9 g/dL, Range (32.0-36.0), *RBC Distribution Width 11.1 - L %, Range (11.5-14.5), Platelet Count 214 thou/uL, Range (130-400), Mean Platelet Volume 10.1 fL, Range (7.4-10.4), %Neutrophils 54.7 %, Range (42.0-75.0), %Lymphocytes 33.1 %, Range (21.0-51.0), %Monocytes 9.1 %, Range (0.0-10.0), %Eosinophils 2.2 %, Range (0.0-10.0), %Basophils 0.9 %, Range (0.0-1.0), #Neutrophils 5.8 thou/uL, Range (1.40-6.50), *#Lymphocytes 3.5 - H thou/uL, Range (1.20-3.40), *#Monocytes 1.0 - H thou/uL, Range (0.11-0.59), #Eosinphils 0.2 thou/uL, Range (0.0-0.7), #Basophils 0.1 thou/uL, Range (0.0-0.2). (23:43 AGRE) Drug Screen, Urine Collection DT: Anisha Oct 31, 2016 00:03, THC/Cannabinoid Screen Not Detected , Range (NotDetected), Phencyclidine (PCP) Not Detected , Range (NotDetected), Cocaine Metabolite Screen Not Detected , Range (NotDetected), Methamphetamine Not Detected , Range (NotDetected), Opiate Screen Not Detected , Range (NotDetected), Amphetamine Not Detected , Range (NotDetected), Benzodiazepine Screen Not Detected , Range (NotDetected), Tricyclic Screen Not Detected , Range (NotDetected), Methadone Not Detected , Range (NotDetected), Barbiturates Screen Not Detected , Range (NotDetected), Oxycodone Screen Not Detected , Range (NotDetected), Propoxyphene Screen Not Detected , Range (NotDetected), Drug Screen Cutoff , Range (), The [employer] Profile-V Panel for Qualitative Drugs of Abuse assays are for, presumptive screening testing only. &a-1R&a+25V*p+0X*r9496F*c202B*c15G*c2P*p-0X&a-25V&a+1R Name: Rommel Huerta Yohana : 1950 M66 MedRec: [id number] AcctNum: [id number] Prepared: Anisha Oct 31, 2016 01:27 by Interface Page 16 of 17 pMD [facility] The drug class and detection limits, are as follows: Drug Class Detection Limit Amphetamine , 500 ng/mL* Barbiturates 200 ng/mL , Benzodiazepines 150 ng/mL* Cocaine 150 ng/mL*, Methamphetamine 500 ng/mL* Methadone 200, ng/mL* Opiates 100 ng/mL* Oxycodone , 100 ng/mL PCP 25 ng/mL Propoxyphene , 300 ng/mL Tricyclic Antidepressants 300 ng/mL Cannabinoids (THC) , 50 ng/mL Tests which yield a presumptive positive result must be , tested using a more specific alternate chemical method in order to obtain, a confirmed analytical result. Additional confirmation and identification, may be ordered on a routine basis, if desired. Presumptive positive urines, are held for two weeks. . (Anisha Oct 31, 2016 00:22 [facility]) Urinalysis with Microscopic Collection DT: Anisha Oct 31, 2016 00:03, Color Yellow , Range (Yellow), Clarity Clear , Range (Clear), Specific [place], Urine 1.015 , Range (1.005-1.030), pH, Urine 7.0 , Range (5.0-9.0), Leukocyte Negative , Range (Negative), Nitrite Negative , Range (Negative), *Protein, Urine (Dipstick) 30 - H mg/dL, Range (Neg-Trace), Glucose, Urine (Dipstick) Negative mg/dL, Range (Negative), Ketone, Urine Negative mg/dL, Range (Negative), Urobilinogen 1.0 mg/dL, Range (0.2-1.0), Bilirubin Negative , Range (Negative), Blood, Urine Negative , Range (Negative), RBC/HPF None Seen HPF, Range (0-3), WBC/HPF None Seen HPF, Range (0-3), Squamous Epithelial None Seen HPF, Range (0-3), Bacteria/HPF None Seen HPF, Range (None Seen). (Anisha Oct 31, 2016 00:22 [facility]) Mclaughlin: AGRE=MD Marshall, Rakan HOWARD=MAYELIN Scott, Radha VILLASENOR=MAYELIN Wells, Suma ANGUIANO=NAOMY Hardin Kayce LEEW=MAYELIN Lanier, Ryan &a-1R&a+25V*p+0X*l6556Z*c202B*c15G*c2P*p-0X&a-25V&a+1R Name: Rommel Huerta : 1950 M66 MedRec: [id number] AcctNum: [id number] Prepared: Anisha Oct 31, 2016 01:27 by Interface Page 17 of 17 pMD [facility]TDD
== END 2016-10-31 00:20 | disposition short-term general hospital (02) ==
LOC: NAV ERS 21:09
DX: S22.41XA Multiple fractures of ribs, right side, initial encounter for closed fracture (principal); S27.329A Contusion of lung, unspecified, initial encounter; S00.81XA Abrasion of other part of head, initial encounter; F17.200 Nicotine dependence, unspecified, uncomplicated; I10 Essential (primary) hypertension; J44.9 Chronic obstructive pulmonary disease, unspecified; X58.XXXA Exposure to other specified factors, initial encounter
CPT/HCPCS: 36416; 51701; 70450; 71010; 71275; 72125; 80053; 80301; 81001; 82553; 84484; 85025; 85379; 90471; 90715; 93005; 96361; 96374; G0478; G0479; J3010; J7050

== ENCOUNTER 2016-12-25 20:35 | Emergency (ER) | payer MEDICARE ==
[2016-12-25] MEDS ORDERED: Adacel (T-DAP) 0.5 ML VIAL ONE (21:14)
[2016-12-25] MEDS ORDERED: Lidocaine 1% 20 ML MDV ONE (21:27)
[2016-12-25] MEDS ORDERED: Triple Antibiotic Oint 1 GM Packet ONE (21:49)
--- NOTE | 2016-12-25 22:51 | RAD ---
THREE VIEWS LEFT HAND 12/25/16 COMPARISON: None. HISTORY: Fall, trauma, pain. FINDINGS: There is scattered degenerative changes, most prominent at the first metacarpophalangeal joint and t he first interphalangeal joint as well as the distal interphalangeal joints of the second and third fingers. No acute osseous abnormality is seen. IMPRESSION: No acute osseous abnormality. POS: [facility]
[2016-12-25] MEDS ORDERED: Cephalexin 500 MG CAP ONE (23:13)
--- NOTE | 2016-12-25 23:16 | CT ---
CT CERVICAL SPINE 12/25/16 COMPARISON: 10/30/16 HISTORY: Tripped and fell from a standing position, trauma, pain. TECHNIQUE: Serial axial CT imaging at 2.5 mm intervals from skull base through lung apices without contrast. Co ailin and sagittal reformatted imaging obtained. FINDINGS: Moderate degenerative change present at the atlantoaxial interspace. Craniocervical junction is inta ct. There is no widening of the AC interspace. There is prominent right sided facet hypertrophy at C 2-3, C3-4, and C4-5. There is no prevertebral soft tissue swelling. Vertebral body height and alignment appears within no rmal limits. There is degenerative disc space narrowing and end plate change at C5-6 and C6-7. Imaged lung apices demonstrate mild stable reticulonodular density in the right lung apex and bilate ral upper lobe emphysematous change. Occipital condyles, dens and C1-2 articulation demonstrate no acute findings. No acute fracture is n oted. IMPRESSION: Stable degenerative changes. No acute osseous abnormality. POS: [facility]
--- NOTE | 2016-12-25 23:34 | CT ---
HEAD CT WITHOUT CONTRAST 12/25/16 COMPARISON: 10/30/16 HISTORY: Tripped and fell from a standing position, trauma, pain. TECHNIQUE: Serial axial CT imaging obtained at 5 mm intervals from vertex through skull base without contrast. Coronal and sagittal reformatted imaging obtained. FINDINGS: There is a subdural collection on the right, new when compared to the prior examination, extending f rom the vertex through the axial level of the frontal horn left lateral ventricle with mixed density . Minimal midline shift from right to left noted measuring 3 mm. Subdural hematoma on the right solo ures up to 1.5 cm in thickness with mass effect on the frontal lobe and parietal lobe near the verte x. The acute components are located more superficially. There is no associated calvarial fracture. There is a focal area of scalp thickening anteriorly on the right just above the frontal sinus with subcutaneous gas, evidence of laceration. There is mild mucosal thickening of the frontal sinus on t he right. Imaged paranasal sinuses and mastoid air cells are well aerated. IMPRESSION: 1. New complex subdural collection on the right with components of low and high density suggest ing acute on subacute/chronic right sided subdural hematoma. 2. Scalp laceration in the right frontal region. 3. Results called to Dr. Gutiérrez, 9:40 p.m., 12/25/16. Code CR POS: [facility]
== END 2016-12-25 23:22 | disposition short-term general hospital (02) ==
LOC: NAV ERS 20:35
DX: S06.5X0A Traumatic subdural hemorrhage without loss of consciousness, initial encounter (principal); S01.81XA Laceration without foreign body of other part of head, initial encounter; S61.412A Laceration without foreign body of left hand, initial encounter; I11.0 Hypertensive heart disease with heart failure; I50.9 Heart failure, unspecified; J44.9 Chronic obstructive pulmonary disease, unspecified; W19.XXXA Unspecified fall, initial encounter
CPT/HCPCS: 12052; 70450; 72125; 90471; 90715; J2001

== ENCOUNTER 2024-03-11 11:08 | Inpatient (IN) | payer MEDICARE ==
[2024-03-12] MEDS ORDERED: Acetaminophen 325 MG TAB PO PRN (11:34)
[2024-03-12] MEDS ORDERED: Calcium Carbonate 500 MG ChewTAB PO PRN (11:34)
[2024-03-12] MEDS ORDERED: HYDROcodone/Acetaminophen 5/325 mg Tablet PO PRN (16:16)
[2024-03-12] MEDS ORDERED: Ipratropium/Albuterol 3 ML NEB NEB PRN (16:16)
[2024-03-12] MEDS ORDERED: Fluticasone Propionate Nasal Spray 16 gm Bottle NASAL PRN (17:33)
[2024-03-12] MEDS: Dronedarone HCl 400 MG TAB PO SCH (17:38)
[2024-03-12] MEDS: Carvedilol 25 MG TAB PO SCH (17:38)
[2024-03-12] MEDS: Senokot S 8.6-50 MG TAB PO PRN (17:40)
[2024-03-12] MEDS: Ipratropium/Albuterol 3 ML NEB NEB SCH (17:48)
[2024-03-12] MEDS: Mometasone 100 MCG/PUFF (1 INHALER) INH SCH (20:03)
[2024-03-12] MEDS: Furosemide 40 MG TAB PO SCH (20:04)
[2024-03-12] MEDS: Potassium Chloride 8 MEQ TAB PO SCH (20:04)
[2024-03-12] MEDS: Famotidine 20 MG TAB PO SCH (20:04)
[2024-03-12] MEDS: Apixaban 2.5 MG TAB PO SCH (20:04)
[2024-03-12] MEDS: Amoxicillin/Potassium Clav 875 MG TAB PO SCH (20:04)
[2024-03-12] MEDS: Metamucil PACK PO SCH (20:05)
[2024-03-12] MEDS: Atorvastatin Calcium 20 MG TAB PO SCH (20:05)
[2024-03-12] MEDS: Melatonin 3 MG TAB PO PRN (20:07)
[2024-03-13 06:07] LABS: #Eosinphils 0.1 thou/uL (0.0-0.7); #Lymphocytes 1.1 thou/uL (1.20-3.40); #Monocytes 0.8 thou/uL (0.11-0.59); #Neutrophils 4.5 thou/uL (1.40-6.50); %Basophils 0.7 % (0.0-1.0); %Eosinophils 0.8 % (0.0-10.0); %Lymphocytes 16.6 % (21.0-51.0); %Monocytes 12.4 % (0.0-10.0); %Neutrophils 69.5 % (42.0-75.0); Hematocrit 38.9 % (42.0-52.0); Hemoglobin 12.7 g/dL (14.0-18.0); Mean Corpuscular HGB CONC 32.6 g/dL (32.0-36.0); Mean Corpuscular Hemoglobin 31.7 pg (27.0-31.0); Mean Corpuscular Volume 97.2 fl (78.0-98.0); Mean Platelet Volume 8.9 fL (7.4-10.4); Platelet Count 170 10x3/uL (130-400); RBC Distribution Width 11.8 % (11.5-14.5); White Blood Cell (WBC) Count 6.5 10x3/uL (4.8-10.8)
[2024-03-13 06:17] LABS: ALT (SGPT) 16 U/L (8-55); AST (SGOT) 14 U/L (5-34); Albumin 3.5 g/dL (3.4-4.8); Alkaline Phosphatase 44 U/L (40-110); Anion Gap 15 mmol/L (10-20); BUN (Urea Nitrogen) 19 mg/dL (8.4-25.7); Bilirubin, Total 0.8 mg/dL (0.2-1.2); Calc. Creatinine Clearance 96 mL/min (70-130); Calcium 9.1 mg/dL (7.8-10.44); Carbon Dioxide 33 mmol/L (23-31); Chloride 94 mmol/L (98-107); Estimated GFR 91; Globulin 2.8 g/dL (2.4-3.5); Glucose 95 mg/dL (83-110); Protein, Total 6.3 g/dL (5.8-8.1); Sodium 138 mmol/L (136-145)
[2024-03-13] MEDS: Cholecalciferol 1,000 UNITS (25 MCG) TAB PO SCH (07:59)
[2024-03-13] MEDS: Aspirin Chewable 81 MG TAB PO SCH (07:59)
[2024-03-13] MEDS: predniSONE 20 MG TAB PO SCH (07:59)
[2024-03-13] MEDS: Zinc Sulfate 220 MG CAP PO SCH (07:59)
[2024-03-13] MEDS ORDERED: Dronedarone HCl 400 MG TAB PO SCH (08:00)
[2024-03-13] MEDS: Lisinopril 5 MG TAB PO SCH (08:00)
[2024-03-13] MEDS: Carvedilol 25 MG TAB PO SCH (08:01)
[2024-03-13] MEDS: Carvedilol 3.125 MG TAB PO SCH (08:26)
[2024-03-13] MEDS: Polyethylene Glycol 3350 17 GM Packet PO SCH (09:47)
[2024-03-13] MEDS: Nicotine 14 MG PATCH TD SCH (09:47)
[2024-03-13] MEDS: Bisacodyl 5 MG TAB PO PRN (16:47)
[2024-03-14 06:13] LABS: Anion Gap 13 mmol/L (10-20); BUN (Urea Nitrogen) 23 mg/dL (8.4-25.7); Calc. Creatinine Clearance 102 mL/min (70-130); Carbon Dioxide 33 mmol/L (23-31); Chloride 96 mmol/L (98-107); Estimated GFR 92; Glucose 94 mg/dL (83-110); Potassium 3.7 mmol/L (3.5-5.1); Sodium 138 mmol/L (136-145)
[2024-03-14] MEDS: Polyethylene Glycol 3350 17 GM Packet PO SCH (09:02)
[2024-03-14] MEDS: Senokot S 8.6-50 MG TAB PO SCH (09:06)
[2024-03-14] MEDS: Sodium Chloride 0.9% 500 ML IV SCH (18:10)
[2024-03-14] MEDS: Carvedilol 3.125 MG TAB PO SCH (18:14)
[2024-03-14] MEDS: Furosemide 40 MG TAB PO SCH (20:21)
[2024-03-15] MEDS ORDERED: Bisacodyl 10 MG SUPP PR PRN (07:54)
[2024-03-15] MEDS: Lisinopril 5 MG TAB PO SCH (08:09)
[2024-03-16] MEDS ORDERED: Furosemide 40 MG TAB PO SCH (06:07)
[2024-03-16] MEDS: predniSONE 20 MG TAB PO SCH (08:07)
[2024-03-16] MEDS: Furosemide 40 MG TAB PO SCH (08:08)
[2024-03-16] MEDS: Doxycycline 100 MG CAP PO SCH (08:15)
[2024-03-20 05:48] LABS: #Basophils 0.1 thou/uL (0.0-0.2); #Eosinphils 0.2 thou/uL (0.0-0.7); #Lymphocytes 1.8 thou/uL (1.20-3.40); #Monocytes 0.9 thou/uL (0.11-0.59); %Basophils 0.6 % (0.0-1.0); %Eosinophils 1.8 % (0.0-10.0); %Lymphocytes 18.2 % (21.0-51.0); %Monocytes 9.1 % (0.0-10.0); %Neutrophils 70.2 % (42.0-75.0); Hematocrit 38.6 % (42.0-52.0); Hemoglobin 12.1 g/dL (14.0-18.0); Mean Corpuscular HGB CONC 31.3 g/dL (32.0-36.0); Mean Corpuscular Hemoglobin 31.1 pg (27.0-31.0); Mean Corpuscular Volume 99.5 fl (78.0-98.0); Mean Platelet Volume 8.1 fL (7.4-10.4); Platelet Count 213 10x3/uL (130-400); Red Blood Cell (RBC) Count 3.88 mill/uL (4.70-6.10)
[2024-03-20 05:59] LABS: Anion Gap 12 mmol/L (10-20); BUN (Urea Nitrogen) 22 mg/dL (8.4-25.7); Calc. Creatinine Clearance 95 mL/min (70-130); Calcium 8.5 mg/dL (7.8-10.44); Carbon Dioxide 32 mmol/L (23-31); Chloride 97 mmol/L (98-107); Estimated GFR 90; Glucose 89 mg/dL (83-110); Potassium 4.1 mmol/L (3.5-5.1); Sodium 137 mmol/L (136-145)
[2024-03-20] MEDS: predniSONE 5 MG TAB PO SCH (08:50)
[2024-03-21] MEDS ORDERED: Polyethylene Glycol 3350 17 GM Packet PO PRN (09:14)
[2024-03-23] MEDS: Senokot S 8.6-50 MG TAB PO PRN (15:10)
[2024-03-26 05:34] VITALS: BMI 24.7
[2024-03-27 06:16] LABS: Hematocrit 37.4 % (42.0-52.0); Hemoglobin 11.8 g/dL (14.0-18.0); Platelet Count 173 10x3/uL (130-400)
[2024-03-27 06:30] LABS: Anion Gap 13 mmol/L (10-20); BUN (Urea Nitrogen) 18 mg/dL (8.4-25.7); Calc. Creatinine Clearance 0 mL/min (70-130); Calcium 8.5 mg/dL (7.8-10.44); Carbon Dioxide 28 mmol/L (23-31); Chloride 102 mmol/L (98-107); Estimated GFR 94; Glucose 92 mg/dL (83-110); Potassium 3.9 mmol/L (3.5-5.1); Sodium 139 mmol/L (136-145)
[2024-03-28 07:22] LABS: ALT (SGPT) 21 U/L (8-55); AST (SGOT) 18 U/L (5-34); Albumin 3.3 g/dL (3.4-4.8); Alkaline Phosphatase 68 U/L (40-110); Anion Gap 13 mmol/L (10-20); BUN (Urea Nitrogen) 14 mg/dL (8.4-25.7); Bilirubin, Total 0.6 mg/dL (0.2-1.2); Calc. Creatinine Clearance 0 mL/min (70-130); Calcium 9.1 mg/dL (7.8-10.44); Carbon Dioxide 27 mmol/L (23-31); Chloride 102 mmol/L (98-107); Estimated GFR 94; Globulin 2.8 g/dL (2.4-3.5); Glucose 95 mg/dL (83-110); Protein, Total 6.1 g/dL (5.8-8.1); Sodium 138 mmol/L (136-145)
[2024-03-28 07:42] LABS: #Eosinphils 0.1 thou/uL (0.0-0.7); #Lymphocytes 1.1 thou/uL (1.20-3.40); #Neutrophils 5.1 thou/uL (1.40-6.50); %Basophils 0.6 % (0.0-1.0); %Eosinophils 1.9 % (0.0-10.0); %Lymphocytes 15.1 % (21.0-51.0); %Neutrophils 69.4 % (42.0-75.0); Hematocrit 39.7 % (42.0-52.0); Hemoglobin 12.4 g/dL (14.0-18.0); Mean Corpuscular HGB CONC 31.4 g/dL (32.0-36.0); Mean Corpuscular Hemoglobin 30.6 pg (27.0-31.0); Mean Corpuscular Volume 97.5 fl (78.0-98.0); Mean Platelet Volume 8.9 fL (7.4-10.4); Platelet Count 163 10x3/uL (130-400); RBC Distribution Width 12.2 % (11.5-14.5); Red Blood Cell (RBC) Count 4.07 mill/uL (4.70-6.10); White Blood Cell (WBC) Count 7.4 10x3/uL (4.8-10.8)
[2024-03-30] MEDS: Furosemide 40 MG TAB PO SCH (08:57)
[2024-04-02 06:18] LABS: #Basophils 0.1 thou/uL (0.0-0.2); #Eosinphils 0.2 thou/uL (0.0-0.7); #Lymphocytes 1.6 thou/uL (1.20-3.40); #Monocytes 0.6 thou/uL (0.11-0.59); #Neutrophils 3.9 thou/uL (1.40-6.50); %Basophils 0.9 % (0.0-1.0); %Eosinophils 3.1 % (0.0-10.0); %Lymphocytes 25.5 % (21.0-51.0); %Monocytes 9.7 % (0.0-10.0); %Neutrophils 60.8 % (42.0-75.0); Hematocrit 40.2 % (42.0-52.0); Hemoglobin 12.5 g/dL (14.0-18.0); Mean Corpuscular HGB CONC 31.1 g/dL (32.0-36.0); Mean Corpuscular Hemoglobin 30.6 pg (27.0-31.0); Mean Corpuscular Volume 98.4 fl (78.0-98.0); Mean Platelet Volume 8.9 fL (7.4-10.4); Platelet Count 160 10x3/uL (130-400); RBC Distribution Width 11.9 % (11.5-14.5); Red Blood Cell (RBC) Count 4.09 mill/uL (4.70-6.10); White Blood Cell (WBC) Count 6.4 10x3/uL (4.8-10.8)
[2024-04-02 06:23] LABS: ALT (SGPT) 48 U/L (8-55); AST (SGOT) 31 U/L (5-34); Albumin 3.6 g/dL (3.4-4.8); Alkaline Phosphatase 69 U/L (40-110); Anion Gap 14 mmol/L (10-20); BUN (Urea Nitrogen) 15 mg/dL (8.4-25.7); Bilirubin, Total 0.6 mg/dL (0.2-1.2); Calc. Creatinine Clearance 0 mL/min (70-130); Calcium 9.3 mg/dL (7.8-10.44); Carbon Dioxide 27 mmol/L (23-31); Chloride 102 mmol/L (98-107); Estimated GFR 93; Glucose 94 mg/dL (83-110); Potassium 3.9 mmol/L (3.5-5.1); Protein, Total 6.6 g/dL (5.8-8.1); Sodium 139 mmol/L (136-145)
[2024-04-05 09:20] VITALS: BP 123/77; TEMP 98
== END 2024-04-05 13:25 | disposition home or self-care (01) | DRG 560 ==
LOC: NAV ACUTE 03-12 14:54
PROVIDERS: ADMIT Student in an Organized Health Care Education/Training Program; ATTEND Student in an Organized Health Care Education/Training Program
DX: S42.301D Unspecified fracture of shaft of humerus, right arm, subsequent encounter for fracture with routine healing (principal); E87.3 Alkalosis; I48.19 Other persistent atrial fibrillation; J44.1 Chronic obstructive pulmonary disease with (acute) exacerbation; I13.0 Hypertensive heart and chronic kidney disease with heart failure and stage 1 through stage 4 chronic kidney disease, or unspecified chronic kidney disease; W18.30XD Fall on same level, unspecified, subsequent encounter; R53.81 Other malaise; I95.1 Orthostatic hypotension; I50.9 Heart failure, unspecified; I25.10 Atherosclerotic heart disease of native coronary artery without angina pectoris; K59.00 Constipation, unspecified; D64.9 Anemia, unspecified; I35.0 Nonrheumatic aortic (valve) stenosis; N18.9 Chronic kidney disease, unspecified; F17.210 Nicotine dependence, cigarettes, uncomplicated; Z98.890 Other specified postprocedural states
CPT/HCPCS: 36415; 80048; 80053; 82565; 85014; 85018; 85025; 85049; 87070; 87205; 94640; 97602; J7512; J7620